=== PATIENT | male | born 1955 | race Caucasian/White ===

== ENCOUNTER 2021-01-01 11:04 | Outpatient (CLI) | payer BC | END 2021-01-01 11:05 | disposition home or self-care (01) | LOC: BICRAD 11:04 | PROVIDERS: ATTEND Family Medicine | DX: M79.671 Pain in right foot (principal) ==

== ENCOUNTER 2021-04-16 14:39 | Outpatient (CLI) | payer BC | END 2021-04-16 14:40 | disposition home or self-care (01) | LOC: BICULT 14:39 | PROVIDERS: ATTEND Nurse Practitioner Family | DX: R93.89 Abnormal findings on diagnostic imaging of other specified body structures (principal); N28.1 Cyst of kidney, acquired | CPT/HCPCS: 76770 ==

== ENCOUNTER 2021-05-22 11:17 | Outpatient (CLI) | payer BC | END 2021-05-22 11:18 | disposition home or self-care (01) | LOC: BICCT 11:17 | PROVIDERS: ATTEND Urology | DX: R31.9 Hematuria, unspecified (principal); N28.1 Cyst of kidney, acquired; K63.89 Other specified diseases of intestine; N28.89 Other specified disorders of kidney and ureter | CPT/HCPCS: 74178; 82565 ==

== ENCOUNTER 2023-05-17 15:14 | Outpatient (CLI) | payer MEDICARE | END 2023-05-17 15:15 | disposition home or self-care (01) | LOC: RAD 15:14 | PROVIDERS: ATTEND Family Medicine | DX: M54.2 Cervicalgia (principal); M47.812 Spondylosis without myelopathy or radiculopathy, cervical region | CPT/HCPCS: 72040 ==

== ENCOUNTER 2025-07-04 14:14 | Outpatient (CLI) | payer MEDICARE | END 2025-07-04 14:15 | disposition home or self-care (01) | LOC: ULT 14:14 | PROVIDERS: ATTEND Urology | DX: N28.1 Cyst of kidney, acquired (principal); N20.0 Calculus of kidney | CPT/HCPCS: 74018; 76770 ==